=== PATIENT | male | born 1970 | race Caucasian/White ===

== ENCOUNTER 2021-02-15 08:36 | Inpatient (IN) | payer MEDICARE ==
[~2021-02-15] VITALS: Ht 167.6 cm; Wt 88.5 kg
[2021-02-15 09:12] LABS: HEMOGLOBIN 13.6 gm/dl (14.0-17.5); RED BLOOD COUNT 4.33 M/UL (4.20-5.50); WHITE BLOOD COUNT 5.3 K/UL (4.5-11.0)
[2021-02-15 09:58] LABS: BUN/CREATININE RATIO 13 (0-10)
[2021-02-15] MEDS ORDERED: OMEPRAZOLE20 MG PO (16:27)
[2021-02-15] MEDS ORDERED: LEVOTHYROXINE75 MCG PO (16:28)
[2021-02-15] MEDS ORDERED: DULOXETINE HCL20 MG PO (16:29)
[2021-02-15] MEDS ORDERED: OLANZAPINE15 MG PO (16:29)
[2021-02-15] MEDS ORDERED: PRAVASTATIN SOD40 MG PO (16:30)
[2021-02-15] MEDS ORDERED: TENORMIN 50 MG50 MG PO (16:30)
[2021-02-15] MEDS ORDERED: FLOMAX 0.4 MG0.4 MG PO (16:31)
[2021-02-15] MEDS ORDERED: FAMOTIDINE20 MG PO (16:31)
[2021-02-15] MEDS ORDERED: FUROSEMIDE20 MG PO (16:31)
[2021-02-16 01:17] LABS: HEMOGLOBIN 12.7 gm/dl (14.0-17.5); RED BLOOD COUNT 4.04 M/UL (4.20-5.50)
[2021-02-16 01:20] LABS: WHITE BLOOD COUNT 11.1 K/UL (4.5-11.0)
[2021-02-16 01:44] LABS: BUN/CREATININE RATIO 17 (0-10)
[2021-02-17 05:18] LABS: WHITE BLOOD COUNT 8.4 K/UL (4.5-11.0)
[2021-02-17 05:33] LABS: BUN/CREATININE RATIO 12 (0-10)
[2021-02-17 05:49] LABS: HEMOGLOBIN 10.5 gm/dl (14.0-17.5); RED BLOOD COUNT 3.4 M/UL (4.20-5.50)
[2021-02-17] MEDS ORDERED: AUGMENTIN 875-1 EACH PO (08:57)
[2021-02-17] MEDS ORDERED: KEPPRA 250 MG250 MG PO (08:57)
[2021-02-18 05:52] LABS: HEMOGLOBIN 10.1 gm/dl (14.0-17.5); RED BLOOD COUNT 3.29 M/UL (4.20-5.50); WHITE BLOOD COUNT 7.4 K/UL (4.5-11.0)
[2021-02-18 08:09] LABS: BUN/CREATININE RATIO 11 (0-10)
== END 2021-02-18 12:44 | disposition home or self-care (01) | DRG 100 ==
LOC: ER1 08:36 → CDU 13:04 → M/S 13:24
PROVIDERS: Emergency Medicine; Physician Assistant Medical; ADMIT Internal Medicine
PROC: B24BZZ4 Ultrasonography of Heart with Aorta, Transesophageal (ICD-10-PCS; principal; 2021-02-15)
DX: R56.9 Unspecified convulsions (principal); J96.01 Acute respiratory failure with hypoxia; J69.0 Pneumonitis due to inhalation of food and vomit; E03.9 Hypothyroidism, unspecified; F32.9 Major depressive disorder, single episode, unspecified; E78.5 Hyperlipidemia, unspecified; N40.0 Benign prostatic hyperplasia without lower urinary tract symptoms; I10 Essential (primary) hypertension; R23.3 Spontaneous ecchymoses; E86.0 Dehydration
CPT/HCPCS: 36415; 36600; 70450; 70553; 71045; 80048; 80053; 82550; 82553; 82803; 83605; 83690; 83735; 84132; 84484; 85025; 85027; 85610; 85730; 86140; 87040; 87081; 87880; 93005; 95816; 96374; 99285; A9577; J0696; J1335; J3475; J7030; U0002

== ENCOUNTER 2021-07-21 00:46 | Emergency (ER) | payer MEDICARE ==
[~2021-07-21] VITALS: Ht 167.6 cm; Wt 90.7 kg
[~2021-07-21 00:46] MED LIST: AUGMENTIN 875-1 EACH PO; DULOXETINE HCL20 MG PO; FAMOTIDINE20 MG PO; FLOMAX 0.4 MG0.4 MG PO; FUROSEMIDE20 MG PO; KEPPRA 250 MG250 MG PO; LEVOTHYROXINE75 MCG PO; OLANZAPINE15 MG PO; OMEPRAZOLE20 MG PO; PRAVASTATIN SOD40 MG PO; TENORMIN 50 MG50 MG PO
[2021-07-21 05:24] LABS: HEMOGLOBIN 14.1 gm/dl (14.0-17.5); RED BLOOD COUNT 4.71 M/UL (4.20-5.50); WHITE BLOOD COUNT 7.2 K/UL (4.5-11.0)
[2021-07-21 05:44] LABS: BUN/CREATININE RATIO 15 (0-10)
[2021-07-23 05:35] LABS: HEMOGLOBIN 13.5 gm/dl (14.0-17.5); RED BLOOD COUNT 4.56 M/UL (4.20-5.50); WHITE BLOOD COUNT 6.3 K/UL (4.5-11.0)
[2021-07-23 06:25] LABS: BUN/CREATININE RATIO 14 (0-10)
== END 2021-07-23 16:45 | disposition home or self-care (01) ==
LOC: ER1 00:46
PROVIDERS: Physician Assistant
DX: G40.909 Epilepsy, unspecified, not intractable, without status epilepticus (principal); G83.84 Todd's paralysis (postepileptic); R29.2 Abnormal reflex; I10 Essential (primary) hypertension; Z79.899 Other long term (current) drug therapy; Z20.822 Contact with and (suspected) exposure to COVID-19
CPT/HCPCS: 70450; 70553; 71045; 72131; 72170; 73552; 73562; 73590; 73600; 73620; 80048; 80053; 81001; 82550; 82553; 83690; 83874; 84484; 85025; 93005; 97161; 97166; 99284; A9577; U0002